=== PATIENT | female | born 1950 ===

== ENCOUNTER 2019-08-29 08:00 | Inpatient (IN) | payer OTHER ==
[~2019-08-29] VITALS: Ht 160 cm; Wt 74.8 kg
[2019-08-29] MEDS ORDERED: FORTAMET500 MG PO (09:22)
[2019-08-29] MEDS ORDERED: AMLODIPINE (09:23)
[2019-08-29] MEDS ORDERED: CARVEDILOL12.5 MG PO (09:24)
[2019-08-29] MEDS ORDERED: SYNTHROID50 MCG PO (09:24)
[2019-08-29] MEDS ORDERED: FENOFIBRATE150 MG PO (09:25)
[2019-09-04] MEDS ORDERED: FENOFIBRATE160 MG PO (09:30)
[2019-09-04] MEDS ORDERED: NORVASC2.5 MG PO (09:30)
[2019-09-06] MEDS ORDERED: XARELTO10 MG PO (06:23)
[2019-09-06] MEDS ORDERED: OXYC1TAB9 PO (06:23)
[2019-09-06] MEDS ORDERED: INTEGRA PLUS C1 EACH PO (06:23)
== END 2019-09-06 14:39 | DRG 470 ==
LOC: SURH 09-04 04:03 → O/R 09-04 04:03 → SURH 09-04 08:00 → EDBD 09-04 08:00 → SURH 09-04 10:45
PROVIDERS: ADMIT Orthopaedic Surgery Sports Medicine
PROC: 0SRD0J9 Replacement of Left Knee Joint with Synthetic Substitute, Cemented, Open Approach (ICD-10-PCS; principal; 2019-09-04 10:45)
DX: M17.12 Unilateral primary osteoarthritis, left knee (principal); I10 Essential (primary) hypertension; E03.8 Other specified hypothyroidism; E11.9 Type 2 diabetes mellitus without complications; Z79.4 Long term (current) use of insulin

== ENCOUNTER 2024-09-19 07:00 | Inpatient (IN) | payer OTHER ==
[~2024-09-19] VITALS: Ht 157.5 cm; Wt 76.2 kg
[~2024-09-19 07:00] MED LIST: AMLODIPINE; CARVEDILOL12.5 MG PO; FENOFIBRATE150 MG PO; FENOFIBRATE160 MG PO; FORTAMET500 MG PO; INTEGRA PLUS C1 EACH PO; NORVASC2.5 MG PO; OXYC1TAB9 PO; SYNTHROID50 MCG PO; XARELTO10 MG PO
[2024-09-19] MEDS ORDERED: VITAMIN D310 MCG/1 M (08:25)
[2024-09-19] MEDS ORDERED: ATORVASTATIN CA10 MG PO (08:25)
[2024-09-19] MEDS ORDERED: ECOTRIN81 MG PO (08:26)
[2024-09-19] MEDS ORDERED: MAGNESIUM500 MG PO (08:30)
[2024-09-19] MEDS ORDERED: RYBELSUS14 MG PO (08:30)
[2024-09-19] MEDS ORDERED: BIOXTRON (08:32)
[2024-09-19 08:39] VITALS: BP 124/83
[2024-09-19 08:46] LABS: HEMATOCRIT 39.4 % (36.0-45.00); HEMOGLOBIN 13.1 g/dL (12.0-15.00); MEAN CELL VOLUME 87.1 fL (80.00-100.00); MEAN CORPUSCULAR HEMOGLOBIN 29.1 pg (27.00-32.0); MEAN CORPUSCULAR HGB CONC 33.4 g/dl (32.0-36.0); PLATELET COUNT 204 K/uL (150-450); RED BLOOD COUNT 4.52 M/uL (4.00-6.00); RED CELL DISTRIBUTION WIDTH 13.1 % (11.5-14.5)
[2024-09-19 09:08] LABS: INR 1.08; PROTHROMBIN TIME 11.7 SECONDS (9.0-11.5)
[2024-09-19 09:32] LABS: PH,URINE 5.5 (5.0-8.0); URINE APPEARANCE Clear; URINE BILIRRUBIN Negative (NEGATIVE); URINE BLOOD Negative; URINE COLOR Yellow; URINE GLUCOSE Negative (NEGATIVE); URINE KETONE Negative (NEGATIVE); URINE LEUKOCYTE Negative; URINE NITRATE Negative; URINE PROTEIN Negative (NEGATIVE); URINE UROBILINOGEN 0.2 E.U./dl
[2024-09-19 09:36] LABS: URINE BACTERIA 6.1 uL (0.0-1933); URINE EPITHELIAL CELLS 2.6 uL (0.0-38.8)
[2024-09-19 09:38] LABS: URINE CAST 0.14 uL (0.0-1.40); URINE WBC 0.9 uL (0.0-23.2)
[2024-09-19 09:39] LABS: ALBUMIN 4.2 gm/dL (3.4-5.0); BILIRUBIN TOTAL 1.6 mg/dL (0.3-1.2); CALCIUM 9.3 mg/dL (8.5-10.1); CREATININE SERUM 0.77 mg/dL (0.55-1.02); GFR 73.28; GLOBULINA 4.1 G/DL (2.4-3.5); POTASSIUM 4.11 mEq/L (3.5-5.1); TOTAL PROTEIN 8.3 gm/dL (6.4-8.2)
[2024-09-19 10:06] LABS: RH POSITIVE
[2024-09-25] MEDS ORDERED: CEFAZOLIN SODIUM 1,000 MG VIAL ONE ×2 (07:05→14:12)
[2024-09-25] MEDS ORDERED: KETOROLAC TROMETHAMINE 60 MG VIAL IM ONE (07:11)
[2024-09-25] MEDS ORDERED: TRANEXAMIC ACID 100MG/1ML (1000MG) AMPUL IV ONE (07:12)
[2024-09-25] MEDS ORDERED: VANCOMYCIN HCL 1,000 MG VIAL ONE (07:12)
[2024-09-25] MEDS ORDERED: LIDOCAINE HCL 1%/EPINEPHRINE 20ML VIAL IJ ONE (07:12)
[2024-09-25] MEDS ORDERED: BUPIVACAINE HCL/MPF 0.5% 30ML VIAL ONE (07:12)
[2024-09-25] MEDS ORDERED: MORPHINE SULFATE 4 MG/ML CARTRIDGE IV ONE (09:15)
[2024-09-25] MEDS ORDERED: GENTAMICIN SULFATE 40 MG/ML VIAL IV SCH (10:47)
[2024-09-25] MEDS ORDERED: MORPHINE SULFATE 4 MG/ML CARTRIDGE IV PRN (11:00)
[2024-09-25] MEDS ORDERED: ONDANSETRON HCL 2 MG/ML VIAL IV PRN (11:00)
[2024-09-25] MEDS ORDERED: SODIUM CHLORIDE 0.45 % 1,000 ML IV SCH (11:00)
[2024-09-25] MEDS ORDERED: MORPHINE SULFATE 2 MG/ML CARTRIDGE IV ONE (11:00)
[2024-09-25] MEDS ORDERED: MORPHINE SULFATE 4 MG/ML VIAL IV ONE (12:00)
[2024-09-25] MEDS ORDERED: CEFAZOLIN SODIUM 1,000 MG VIAL IV SCH (12:00)
[2024-09-25 12:50] LABS: HEMATOCRIT 37.1 % (36.0-45.00); RED BLOOD COUNT 4.17 M/uL (4.00-6.00)
[2024-09-25 14:35] VITALS: BP 146/78; O2SAT 98
[2024-09-25 16:38] VITALS: BP 115/72; O2SAT 99
[2024-09-25] MEDS ORDERED: ATORVASTATIN CALCIUM 10 MG TABLET PO SCH (21:00)
[2024-09-26 00:59] VITALS: BP 128/78; O2SAT 96
[2024-09-26] MEDS ORDERED: LEVOTHYROXINE SODIUM 50 MCG TABLET PO SCH (06:00)
[2024-09-26 08:02] LABS: HEMATOCRIT 32.3 % (36.0-45.00); HEMOGLOBIN 10.8 g/dL (12.0-15.00); MEAN CELL VOLUME 87.3 fL (80.00-100.00); MEAN CORPUSCULAR HEMOGLOBIN 29.1 pg (27.00-32.0); MEAN CORPUSCULAR HGB CONC 33.4 g/dl (32.0-36.0); PLATELET COUNT 161 K/uL (150-450); RED BLOOD COUNT 3.71 M/uL (4.00-6.00); RED CELL DISTRIBUTION WIDTH 13.1 % (11.5-14.5)
[2024-09-26] MEDS ORDERED: ACETAMINOPHEN WITH CODEINE 1 UDTAB TABLET PO PRN (08:15)
[2024-09-26] MEDS ORDERED: RIVAROXABAN 10 MG TAB PO SCH (09:00)
[2024-09-26] MEDS ORDERED: SENNA/DOCUSATE SODIUM 1 TAB TABLET PO SCH (09:00)
[2024-09-26] MEDS ORDERED: BACITRACIN 28.35 GM OINT.TUBE TOP SCH (09:00)
[2024-09-26] MEDS ORDERED: AMLODIPINE BESYLATE 2.5 MG TABLET PO SCH (09:00)
[2024-09-26] MEDS ORDERED: CARVEDILOL 12.5 MG TABLET PO SCH (09:00)
[2024-09-26] MEDS ORDERED: MetFORMIN HCL 500 MG TABLET PO SCH (09:00)
[2024-09-26] MEDS ORDERED: IRON FUM,PS/FOLIC/BCOMP,C NO.9 1 CAP CAPSULE PO SCH (09:00)
[2024-09-26 10:10] VITALS: BP 143/92; O2SAT 90
[2024-09-26 18:00] VITALS: BP 137/75; O2SAT 95
[2024-09-27 01:07] VITALS: BP 99/62; O2SAT 97
[2024-09-27] MEDS ORDERED: XARELTO10 MG PO (07:50)
[2024-09-27] MEDS ORDERED: Septra Ds Tablet PO (07:50)
[2024-09-27] MEDS ORDERED: INTEGRA PLUS C1 EACH PO (07:50)
[2024-09-27] MEDS ORDERED: TRAM1TAB98 PO (07:51)
[2024-09-27 08:00] VITALS: BP 149/86; O2SAT 95
[2024-09-27 08:26] LABS: HEMATOCRIT 28.6 % (36.0-45.00); HEMOGLOBIN 9.4 g/dL (12.0-15.00); MEAN CELL VOLUME 87.3 fL (80.00-100.00); MEAN CORPUSCULAR HEMOGLOBIN 28.6 pg (27.00-32.0); MEAN CORPUSCULAR HGB CONC 32.8 g/dl (32.0-36.0); PLATELET COUNT 144 K/uL (150-450); RED BLOOD COUNT 3.28 M/uL (4.00-6.00); RED CELL DISTRIBUTION WIDTH 12.9 % (11.5-14.5)
[2024-09-27] MEDS ORDERED: SULFAMETHOXAZOLE/TRIMETHOPRIM DS 1 TAB PO SCH (09:00)
[2024-09-27 16:00] VITALS: BP 120/77; O2SAT 95
== END 2024-09-27 18:39 | disposition home or self-care (01) | DRG 470 ==
LOC: O/R 09-25 04:51 → SURH 09-25 07:00
PROVIDERS: ADMIT Orthopaedic Surgery Sports Medicine; ATTEND Orthopaedic Surgery Sports Medicine
PROC: 0SRC0J9 Replacement of Right Knee Joint with Synthetic Substitute, Cemented, Open Approach (ICD-10-PCS; principal; 2024-09-25 17:30)
DX: M17.11 Unilateral primary osteoarthritis, right knee (principal); I10 Essential (primary) hypertension; E11.9 Type 2 diabetes mellitus without complications; E03.9 Hypothyroidism, unspecified; Z79.84 Long term (current) use of oral hypoglycemic drugs